=== PATIENT | male | born 1975 | race Two or more races ===

== ENCOUNTER 2023-10-02 10:21 | Emergency (ER) | payer MEDICAID, OTHER ==
[~2023-10-02] VITALS: Ht 162.6 cm; Wt 106.2 kg
[2023-10-02 11:02] VITALS: BP 139/94; PULSE 80; RESP 18; O2SAT 96
[2023-10-02] MEDS: ONDANSETRON ODT 4 MG TAB PO ONE (11:40)
[2023-10-02] MEDS: KETOROLAC TROMETH 60MG/2ML VIAL IM ONE (11:40)
[2023-10-02] MEDS: ACETAMINOPHEN 500 MG TAB PO ONE (11:41)
[2023-10-02 12:37] VITALS: TEMP 97.2
[2023-10-02] MEDS: HYDROcodone-ACET 5/325MG TAB PO ONE (12:52)
[2023-10-02] MEDS ORDERED: ACE3T PO (12:59)
[2023-10-02] MEDS ORDERED: ZOFR4T PO (12:59)
[2023-10-02] MEDS ORDERED: IBUP-1455 PO (12:59)
== END 2023-10-02 13:10 | disposition home or self-care (01) ==
LOC: ER 10:21
DX: R51.9 Headache, unspecified (principal)
CPT/HCPCS: 96372; 99284; J1885; Q0162

== ENCOUNTER 2023-10-03 17:33 | Emergency (ER) | payer MEDICAID ==
[~2023-10-03] VITALS: Ht 162.6 cm; Wt 106.4 kg
[~2023-10-03 17:33] MED LIST: ACE3T PO; IBUP-1455 PO; ZOFR4T PO
[2023-10-03 18:24] VITALS: BP 145/85; PULSE 82; RESP 16; TEMP 97.6; O2SAT 96
[2023-10-03] MEDS: diphenhdrAMINE HCL 50 MG/1 ML VL IM ONE (19:05)
[2023-10-03] MEDS: METOCLOPRAMIDE HCL 5MG/ml INJ 2ml VIAL IM ONE (19:06)
[2023-10-03] MEDS: KETOROLAC TROMETH 60MG/2ML VIAL IM ONE (19:07)
[2023-10-03] MEDS: DexAMETHasone SOD PHOS 10MG/1ML VIAL INJ IM ONE (19:08)
== END 2023-10-03 20:04 | disposition home or self-care (01) ==
LOC: ER 17:33
DX: R51.9 Headache, unspecified (principal); I10 Essential (primary) hypertension
CPT/HCPCS: 96372; 99284; J1100; J1200; J1885; J2765